=== PATIENT | male | born 1965 | race Caucasian/White ===

== ENCOUNTER 2019-08-02 12:05 | Emergency (ER) | payer MEDICAID ==
[~2019-08-02] VITALS: Ht 170.2 cm; Wt 113.6 kg
[~2019-08-02 12:05] MED LIST: BUPR150T8 PO; OXYC-511 PO; VENL150C2 PO
--- NOTE | 2019-08-02 12:36 | NUR ---
Patient ambulated to room with steady gait. 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 Patient reports 1/10 TREVIÑO pain. Patient declines need for light to be dimmed, no vision changes or light sensitivity. Patient denies any CP, SOB, Abd pain. Patient reports slight "soreness" to right FA.
[2019-08-02 12:58] LABS: BASOPHILS # (AUTO) 0.1 X10'3 (0-0.2); BASOPHILS % (AUTO) 0.5 % (0-1); EOSINOPHILS # (AUTO) 0.3 X10'3 (0-0.9); EOSINOPHILS % (AUTO) 3.4 % (0-6); HEMATOCRIT 46.3 % (42.0-52.0); HEMOGLOBIN 15.3 g/dl (14.0-17.9); LYMPHOCYTES # (AUTO) 2.5 X10'3 (1.1-4.8); LYMPHOCYTES % (AUTO) 24.2 % (21-51); MEAN CORPUSCULAR HEMOGLOBIN 28.3 PG (27.0-31.0); MEAN CORPUSCULAR HGB CONC 33.1 g/dL (33.0-36.5); MEAN CORPUSCULAR VOLUME 85.6 FL (78-98); MEAN PLATELET VOLUME 8.4 FL (7.4-10.4); MONOCYTES # (AUTO) 1.1 X10'3 (0-0.9); MONOCYTES % (AUTO) 11.3 % (2-12); NEUTROPHILS # (AUTO) 6.2 X10'3 (1.8-7.7); NEUTROPHILS % (AUTO) 60.6 % (42-75); PLATELET COUNT 259 X10'3 (140-440); RED BLOOD COUNT 5.42 X10'6 (4.70-6.10); RED CELL DISTRIBUTION WIDTH 14.6 % (11.5-14.5); WHITE BLOOD COUNT 10.2 X10'3 (4.5-11.0)
[2019-08-02] MEDS ORDERED: normal saline 1000ml 1,000 ML IV ONE (13:00)
--- NOTE | 2019-08-02 13:00 | NUR ---
Patient to CT
[2019-08-02] MEDS ORDERED: iohexol 350MG/ML 100ml bottle IV ONE (13:04)
[2019-08-02 13:13] LABS: ALANINE AMINOTRANSFERASE 26 U/L (12-78); ALBUMIN 3.3 G/DL (3.4-5.0); ALBUMIN/GLOBULIN RATIO 0.9 (1.1-1.5); ALKALINE PHOSPHATASE 67 IU/L (46-116); ANION GAP 5 (8-16); ASPARTATE AMINO TRANSFERASE 20 U/L (10-37); BILIRUBIN,TOTAL 0.4 MG/DL (0.1-1.0); BLOOD UREA NITROGEN 14 MG/DL (7-18); BUN/CREATININE RATIO 12.4 (5.4-32.0); CALCIUM 8.4 MG/DL (8.5-10.1); CHLORIDE 109 MMOL/L (99-107); CREATININE 1.13 MG/DL (0.60-1.10); GLUCOSE 90 MG/DL (70-104); POTASSIUM 4.4 MMOL/L (3.5-5.1); SODIUM 142 MMOL/L (135-145); TOTAL CARBON DIOXIDE 28.4 MMOL/L (24-32); TOTAL PROTEIN 6.8 G/DL (6.4-8.2); eGFR 68 ML/MIN
[2019-08-02 13:38] VITALS: BP 121/80
[2019-08-02] MEDS ORDERED: acetaminophen 325mg tablet PO ONE (13:50)
== END 2019-08-02 14:33 | disposition home or self-care (01) ==
LOC: ER 12:06
DX: R51 Headache (principal); Z79.899 Other long term (current) drug therapy
CPT/HCPCS: 36415; 70470; 80053; 85025; 93005; 99285; J7030; Q9967

== ENCOUNTER 2020-05-24 03:11 | Emergency (ER) | payer MEDICAID ==
[~2020-05-24] VITALS: Ht 170.2 cm; Wt 124.1 kg
[~2020-05-24 03:11] MED LIST changes: -OXYC-511 PO; +OXYC1TAB17 PO
[2020-05-24] MEDS ORDERED: ketorolac trometh inj. 60 MG/2 ML VIAL IM ONE (03:25)
--- NOTE | 2020-05-24 04:05 | NUR ---
requests to speak to md prior to leaving for pain medication rx
[2020-05-24] MEDS ORDERED: HYDR-3972 PO (04:07)
[2020-05-24 04:11] VITALS: BP 148/96
--- NOTE | 2020-05-24 04:13 | NUR ---
bertin ruff with incentive spirometry
== END 2020-05-24 04:12 | disposition home or self-care (01) ==
LOC: ER 03:11
DX: S22.32XA Fracture of one rib, left side, initial encounter for closed fracture (principal); Z79.899 Other long term (current) drug therapy; X50.1XXA Overexertion from prolonged static or awkward postures, initial encounter; Y93.89 Activity, other specified; Y92.89 Other specified places as the place of occurrence of the external cause; Y99.8 Other external cause status
CPT/HCPCS: 71045; 96372; 99283; J1885